=== PATIENT | male | born 1965 | race Caucasian/White ===

== ENCOUNTER 2018-05-28 14:35 | Outpatient (CLI) | payer MEDICAID ==
[~2018-05-28] VITALS: Ht 188 cm; Wt 95.3 kg
[2018-05-28 14:45] VITALS: BP 119/82
[2018-05-28] MEDS ORDERED: CELEXA40 MG ORAL (15:49)
[2018-05-28] MEDS ORDERED: ADDERAL20 MG ORAL (15:49)
[2018-05-28] MEDS ORDERED: TRUVADA 200 MG1 EAC1 ORAL (15:49)
[2018-05-28] MEDS ORDERED: WELLBUTRIN XL150 MG ORAL (15:49)
--- NOTE | 2018-05-28 15:51 | GI Initial Consult Note ---
History of Present Illness General Date patient seen: May 28, 2018 Time patient seen: 15:35 Referring physician: O Reason for Consultation: COLONOSCOPY SCREENING Present Illness HPI 52 year old male patient presents today for routine colonoscopy. Denies any GI symptoms; denies abdominal pain, N/V/D or constipation. Denies any unintentional weight loss or changes in dietary habits. No signs of abuse or neglect. Patient is not fall risk. Home Meds Reported Medications Emtricitabine/Tenofovir 200-300MG* (TRUVADA 200-300MG*) 1 Each Tablet, 1 TAB ORAL DAILY, TAB 05/28/18 Bupropion Hcl* (WELLBUTRIN XL*) 150 Mg Tab.er.24h, 150 MG ORAL DAILY for 30 Days , TAB 0 Refills 05/28/18 Citalopram Hydrobromide (CELEXA) 40 Mg Tablet, 20 MG ORAL DAILY, TAB 05/28/18 Dextroamphetamine/Amphetamine (Adderall 20 mg Tablet) Unknown Strength Tablet, ORAL DAILY, TAB 05/28/18 Med list reviewed/reconciled: Yes Allergies: Coded Allergies: No Known Allergies (Unverified , 05/28/18) Patient History History Provided By: Patient, Medical Record H Narrative Depression Hemorrhoids Murmur (MVP) Past Surgical History: Tonsillectomy Family History Narrative Father with Skin CA Mother with Ovarian CA Social History: Reports: other - caffiene use; Denies: smoking, alcohol use, drug use Review of Systems All Other Systems: negative except mentioned in HPI Physical Exam T 98.8 BP 119/82 P 94 96 RA HT 6'2 WT 210 Sp02 EP Interpretation: reviewed, normal General Appearance: well appearing, no apparent distress, alert Head: normocephalic EENT: PERRL/EOMI, normal ENT inspection Neck: supple Respiratory: normal breath sounds, no respiratory distress Cardiovascular: normal rate Gastrointestinal: normal inspection, non tender, soft, normal bowel sounds, non -distended Rectal: deferred Genitourinary: deferred Musculoskeletal: normal inspection, back normal Neurologic: normal inspection, alert, oriented x3, responsive Psychiatric: normal inspection, judgement/insight normal, memory normal Skin: normal inspection, normal color, no rash, warm/dry, palpation normal, well hydrated Lymphatic: normal inspection, no adenopathy GI: Plan Problems: (1) Colonoscopy planned (2) Depression (3) Acute hemorrhoid Plan Colonoscopy to be scheduled pending PA, will contact patient. - CLD & (Nulytely/Suprep/Movi-Prep) prep instructions given and acknowledged by patient. - NPO @ [place] day prior procedure explained. Discussed with Dr. Alcocer. Thank you for this patient referral, we will follow. The patient was seen and examined at bedside and all new and available data was reviewed in the patients chart. I agree with the above findings, impression and plan. (Patient seen earlier today. Signature stamp does not reflect patient encounter time.). - MD Ashlyn [facility]borne[facility] May 28, 2018 15:51
== END 2018-05-28 15:05 | disposition home or self-care (01) ==
LOC: PAN 14:35
DX: Z12.11 Encounter for screening for malignant neoplasm of colon (principal); F32.9 Major depressive disorder, single episode, unspecified; K64.9 Unspecified hemorrhoids
CPT/HCPCS: 99201